=== PATIENT | male | born 1975 | race Caucasian/White ===

== ENCOUNTER 2024-09-21 06:03 | Emergency (ER) | payer OTHER, SELFPAY ==
[2024-09-21 06:04] VITALS: BMI 34.1
[2024-09-21 06:06] VITALS: BP 138/98
[2024-09-21 06:16] VITALS: BP 139/100
[2024-09-21] MEDS: TORADOL 15 MG IV (06:29)
[2024-09-21 06:31] LABS: % Basophils 0.7 % (0-2); % Immature Granulocytes 0.3 % (0-0.5); % Lymphocytes 18.1 % (20.5-51.1); % Monocytes 9.2 % (1.7-9.3); % Neutrophils 70.7 % (42.2-75.2); Absolute Basophils 0.1 10^3/uL (0-0.2); Absolute Eosinophils 0.1 10^3/uL (0-0.7); Absolute Lymphocytes 1.3 10^3/uL (1.2-3.4); Absolute Monocytes 0.7 10^3/uL (0.1-0.6); Hematocrit 46.8 % (39.0-52.0); Hemoglobin 16.2 g/dL (13.0-18.0); Mean Corp Hgb Conc. 34.6 g/dL (33.0-37.0); Mean Corpuscular Hgb 32.3 pg (27.0-31.0); Mean Corpuscular Volume 93.4 fL (80.0-94.0); Mean Platelet Volume 8.6 fL (7.4-10.4); Nucleated Red Blood Cells % 0 % (-); Platelet Count 271 10^3/uL (130-400); Red Blood Cell Count 5.01 10^6/uL (4.70-6.10); Red Cell Dist. Width 11.7 % (11.5-14.5); White Blood Cell Count 7.1 10^3/uL (4.8-10.8)
[2024-09-21 06:46] LABS: ALT (SGPT) 50 U/L (0-50); AST (SGOT) 34 U/L (17-59); Albumin 4.9 g/dl (3.5-5.0); Alkaline Phosphatase 66 U/L (38-126); Blood Urea Nitrogen 19 mg/dl (9-20); Calcium 10.2 mg/dl (8.4-10.2); Carbon Dioxide 28 mmol/L (22-30); Chloride 104 mmol/L (98-107); Estimated Creatinine Clearance > 125 ml/min; Glucose 163 mg/dl (70-99); Potassium 4.6 mmol/L (3.5-5.1); Sodium 140 mmol/L (135-145); Total Protein 7.3 g/dl (6.3-8.2); eGFR > 60.00
--- NOTE | 2024-09-21 06:47 | ED.GENMED ---
History of Present Illness
General
Chief Complaint: Flank Pain
Source: patient
Time Seen by Provider: 09/21/24 06:17
History of Present Illness
History of Present Illness:
48-year-old male presents to the emergency room complaint of right flank pain. Patient states that he was diagnosed with kidney stones on the right at [facility] about a week or so ago. He believes that he had 2 stones the largest being
5.5 mm. He was discharged without any prescriptions and told to take Tylenol and ibuprofen for pain. This has been adequate until today when the pain began more severe. He denies any fever though he did have chills this morning. He denies any
nausea or vomiting. Patient has had a urologic procedure for stones. He has an appointment on Monday with a urologist associated with [facility].
Past History
Past History
ED Past Medical History: HTN, NIDDM and Other (Kidney stones, R forearm fx.)
ED Past Surgical History: None
Social History
Tobacco: Non-smoker
Alcohol: Occasional
Drug: None
Personal:
Living: with family
Employment: Employed
Family History
Family History: Other (Noncontributory)
Phy Exam
Physical Exam
Physical Exam:
General: Awake, Alert, Oriented X3. No acute distress.
Vitals: unremarkable
Head: Atraumatic
Eyes: Pupils equal, EOMI
Throat: Airway intact, no exudates
Neck: Trachea midline
Lungs: Clear and equal b/l
Heart: Regular rate, no murmurs
Abd: Soft, Nontender, No pulsatile mass
Back: Minimal right flank pain
Neuro: Nonfocal
Skin: Warm, dry, no rash
Extremities: pulses equal b/l, no edema
Course
Orders/Labs/Results
Orders:
Orders
09/21/24 06:24
Complete Blood Count/With Diff Urgent
Comprehensive Metabolic Panel Urgent
Urinalysis Reflex To Culture Urgent
Date Specimen was Collected: 09/21/24
Time Specimen was Collected: 06:23
Urine Microscopic Reflex Cult Urgent
Urine Culture Urgent
EVA Source: U
Specimen Description:
Date Specimen was Collected: 09/21/24
Time Specimen was Collected: 06:23
09/21/24 06:25
Ketorolac [Toradol] 15 mg IV NOW STA
09/21/24 06:47
HYDROmorphone [Dilaudid] 1 mg IV NOW STA
09/21/24 07:04
Ipratropium/Albuterol Sulfate [Duoneb] 3 ml INH R NOW ONE
09/21/24 08:36
Cephalexin Monohydrate [Keflex] 500 mg PO NOW STA
Abnormal Lab Results
09/21/24
06:24
MCH 32.3 H pg
(27.0-31.0)
Absolute Monos (auto) 0.7 H 10^3/uL
(0.1-0.6)
Lymphocytes % 18.1 L %
(20.5-51.1)
Glucose 163 H mg/dl
(70-99)
Ur Occult Blood Reflex 4+ A
(Negative)
Leukocyte Esterase Rfl 1+ A
(Negative)
Urine RBC 11-15 A /HPF
(0-2)
Urine Bacteria (Reflex) Few A
(Negative)
Urine Albumin (Reflex) 2+ A
(Neg - Trace)
09/21/24 06:24
09/21/24 06:24
Vital Signs
Initial and Last Documented VS:
Initial Vital Signs
Temp Pulse Resp BP Pulse Ox
97.7 F 63 20 138/98 100
09/21/24 06:06 09/21/24 06:06 09/21/24 06:06 09/21/24 06:06 09/21/24 06:06
Last Documented Vital Signs
Temp Pulse Resp BP Pulse Ox
97.7 F 63 20 126/87 96
09/21/24 06:06 09/21/24 06:06 09/21/24 06:06 09/21/24 08:00 09/21/24 08:15
MDM/Problems Addressed
Differential Diagnosis Includes:
Renal colic, UTI, dehydration, renal failure
MDM/Problems Addressed:
Patient presents with right flank pain. He has known kidney stone. Pain controlled adequately here. Labs show normal white count. He is afebrile. His urine did have some WBCs and RBCs but also had some squamous epithelial cells. We will cover
with antibiotics given the elevated white blood cell count. Patient has an appointment to follow-up with urology on Monday which he should obviously keep. He understands to return if he develops a fever. Prescriptions for oxycodone and
tamsulosin sent to the pharmacy
*Pulse Oximetry
Patient hypoxic: no
*Critical Care Note
Total Time (30-74mins, 75-104mins- exclusive of procedures): Not Applicable
ED Attending Note
-
Portions of this chart may have been created with voice recognition software.� Occasional wrong word or��sound alike� substitutions may have occurred due to the inherent limitations of voice recognition software.
Discharge Plan
Departure
Patient Disposition: Home (Routine Discharge)
Date of Disposition: 09/21/24
Time of Disposition: 08:37
Patient with high blood pressure during this ER visit?: No
Condition: Good
Discharge Problem:
Kidney stone on right side
Instructions: Kidney Stones (DC)
Prescriptions:
New
cephalexin 500 mg capsule
500 mg PO BID Qty: 14 0RF
oxycodone 5 mg tablet
5 mg PO Q6H PRN (Reason: Pain) Qty: 12 0RF
tamsulosin [Flomax] 0.4 mg capsule
0.4 mg PO DAILY Qty: 10 0RF
No Action
Astroven
10 mg PO DAILY
multivitamin Tablet
1 tab PO DAILY
lisinopril 20 mg Tablet
20 mg PO DAILY
metformin 1,000 mg Tablet
1,000 mg PO BID
sertraline 25 mg Tablet
25 mg PO DAILY
Januvia 100 mg Tablet
100 mg PO DAILY
glipizide 2.5 mg Tablet
2.5 mg PO DAILY
Referrals:
UNKNOWN - PT DOES,NOT KNOW [Family Provider] -
Activity Restrictions/Additional Instructions:
Follow up with your urologist as scheduled on Monday
Interventions
Interventions:
*Risk Screen - Suicide Last Done: 09/21/24 06:06
*General Assessment Last Done: 09/21/24 06:06
*Neglect/Abuse Screening Last Done: 09/21/24 06:06
*ED- Fall Risk Assessment Last Done: 09/21/24 06:06
*ED COVID-19 Vaccine History Last Done: 09/21/24 06:06
*Nursing Disposition Last Done: 09/21/24 08:51
ZX-Qjipvh-Narehwutxi Assessment Last Done: 09/21/24 07:20
ED-Male Genitourinary Assessment Last Done: 09/21/24 07:20
Discharge Date and Time
Discharge Date/Time: 09/21/24 09:05
Print Language: INDONESIAN
[2024-09-21 07:00] VITALS: BP 135/106
[2024-09-21 07:08] LABS: Urine Albumin 2+ (Neg - Trace); Urine Bilirubin Negative (Negative); Urine Character Clear (Clear); Urine Color Yellow; Urine Glucose Negative (Negative); Urine Ketone Negative (Negative); Urine Leukocyte 1+ (Negative); Urine Nitrite Negative (Negative); Urine Occult Blood 4+ (Negative); Urine Specific Gravity 1.025 (<1.030); Urine Urobilinogen Negative (Neg - 1+)
[2024-09-21] MEDS: DILAUDID 1 MG IV (07:12)
[2024-09-21 08:00] VITALS: BP 126/87
[2024-09-21 08:23] LABS: Urine Amorphous Seen; Urine Bacteria Few (Negative); Urine Calcium Oxalate Crystals Seen
[2024-09-21] MEDS: KEFLEX 500 MG PO (08:46)
== END 2024-09-21 09:05 | disposition home or self-care (01) ==
LOC: EMR 06:03
PROVIDERS: EMERGENCY PHYSICIAN Emergency Medicine
DX: N20.0 Calculus of kidney (principal); D72.829 Elevated white blood cell count, unspecified; I10 Essential (primary) hypertension; E11.9 Type 2 diabetes mellitus without complications
CPT/HCPCS: 96374; 96375; 99284; 80053; 81003; 81015; 85025; 87086